=== PATIENT | male | born 2000 | race Caucasian/White ===

== ENCOUNTER 2018-06-30 06:25 | Emergency (ER) | payer MEDICAID ==
[~2018-06-30] VITALS: Ht 167.6 cm; Wt 57.0 kg
[2018-06-30] MEDS ORDERED: KETOROLAC 60MG/2ML VIAL IM ONE (10:30)
[2018-06-30 11:50] VITALS: BP 115/74
== END 2018-06-30 12:21 | disposition home or self-care (01) ==
LOC: ER 06:25
DX: R07.89 Other chest pain (principal)
CPT/HCPCS: 71046; 93005; 96372; 99283; J1885; Z7610